=== PATIENT | female | born 1975 ===

== ENCOUNTER 2016-10-06 11:25 | Emergency (ER) | payer MEDICARE, MEDICAID ==
[2016-10-06 11:45] VITALS: PULSE 98; TEMP 98; O2SAT 100; BMI 22.8
--- NOTE | 2016-10-06 11:47 | C.PDOC ---
History Of Present Illness A 41 year old female, with a past medical history of herniated discs, presents to the emergency room with complaints of chronic lower back pain for 3 days. Patient reports that the pain is radiating to her right leg. Patient denies any fever, urinary symptoms, numbness, weakness, or any other complaints. Patient obtains prescribed controlled substances from PMD, who she had an appointment with yesterday. Patient notes that the PMD canceled the appointment due to an unknown conflict. Patient has another appointment scheduled in 1 week. Time Seen by Provider: 10/06/16 11:37 Chief Complaint (Nursing): Back Pain History Per: Patient History/Exam Limitations: no limitations Onset/Duration Of Symptoms: Days (3) Current Symptoms Are (Timing): Still Present Quality Of Discomfort: "Pain" Severity: Mild Previous Symptoms: Back Pain, Chronic Pain Associated Symptoms: None. denies: Incontinence, New Weakness, New Numbness Recent travel outside of the [place]: No Past Medical History Reviewed: Historical Data, Nursing Documentation, Vital Signs Vital Signs: Last Vital Signs Temp 98 F 10/06/16 11:43 Pulse 98 H 10/06/16 11:43 Resp 16 10/06/16 11:43 BP 133/81 10/06/16 12:10 Pulse Ox 100 10/06/16 12:00 - Medical History PMH: Back Problems, HTN, Hypothyroidism, Seizures Denies: Chronic Kidney Disease Family History: States: Unknown Family Hx - Social History Hx Tobacco Use: No Hx Alcohol Use: No Hx Substance Use: No - Immunization History Hx Tetanus Toxoid Vaccination: Yes Hx Influenza Vaccination: Yes (2015) Hx Pneumococcal Vaccination: Yes Review Of Systems Except As Marked, All Systems Reviewed And Found Negative. Constitutional: Negative for: Fever Genitourinary: Negative for: Dysuria, Incontinence, Hematuria Musculoskeletal: Positive for: Back Pain Neurological: Negative for: Weakness, Numbness Physical Exam - Physical Exam Additional Physical Exam Comments: Constitutional: No acute distress. Head: Normocephalic. Atraumatic. Eyes: PERRL. ENT: Moist mucous membranes. Neck: Supple. Back: No CVA tenderness. No midline tenderness. Musculoskeletal: No tenderness or swelling of extremities. Skin: No rash. Neurologic: Alert, no focal deficit. ED Course And Treatment O2 Sat by Pulse Oximetry: 100 Medical Decision Making Medical Decision Making: Impression: A 41 year old female with chronic lower back pain. No acute findings on exam. Plan: -- Tramadol Progress Notes: Will administer 1 dose of Tramadol in ER. Explained to patient that I am unable to provided any prescriptions for controlled substances, as Patient is currently in contract with another physician. Disposition - Disposition Disposition: HOME/ ROUTINE Disposition Time: 12:11 Condition: STABLE Instructions: Lumbar Disc Herniation (ED) - Clinical Impression Clinical Impression: Chronic back pain - Scribe Statement The provider has reviewed the documentation as recorded by the Alannah Connolly Provider Scribe Attestation: All medical record entries made by the Alannah were at my direction and personally dictated by me. I have reviewed the chart and agree that the record accurately reflects my personal performance of the history, physical exam, medical decision making, and the department course for this patient. I have also personally directed, reviewed, and agree with the discharge instructions and disposition.
[2016-10-06 11:51] VITALS: RESP 16
[2016-10-06 12:11] VITALS: BP 133/81
== END 2016-10-06 12:12 | disposition home or self-care (01) ==
LOC: C.ER 11:25
DX: M54.5 Low back pain (principal); G89.29 Other chronic pain

== ENCOUNTER 2016-11-29 10:44 | Emergency (ER) | payer MEDICARE, OTHER ==
[2016-11-29 10:44] VITALS: BMI 24.3
[2016-11-29 11:02] VITALS: RESP 18; TEMP 98.1; O2SAT 98
[2016-11-29] MEDS ORDERED: Tmp-Smz 800 mg-160 mg DS Tab PO STA (11:46)
[2016-11-29] MEDS ORDERED: Tmp-Smz 800 mg-160 mg DS Tab ONE (11:56)
--- NOTE | 2016-11-29 12:14 | C.PDOC ---
History Of Present Illness 41 yr old female presents to the ER with complaints of pain to the right great toe for the past 3 days. Patient states she had a pedicure which she did herself and days later noticed pus was coming out and last night the nail fell off. Patient denies direct trauma, fever, chills, leg pain, weakness or numbness. Time Seen by Provider: 11/29/16 11:18 Chief Complaint (Nursing): Lower Extremity Problem/Injury History Per: Patient History/Exam Limitations: no limitations Onset/Duration Of Symptoms: Days (3) Past Medical History Reviewed: Historical Data, Nursing Documentation, Vital Signs Vital Signs: Last Vital Signs Temp 98.1 F 11/29/16 10:56 Pulse 75 11/29/16 12:50 Resp 18 11/29/16 12:50 BP 124/72 11/29/16 12:50 Pulse Ox 98 11/29/16 13:38 - Medical History PMH: Back Problems, HTN, Hypothyroidism, Seizures Family History: States: No Known Family Hx - Social History Hx Tobacco Use: No Hx Alcohol Use: No Hx Substance Use: No - Immunization History Hx Tetanus Toxoid Vaccination: Yes Hx Influenza Vaccination: Yes (2016) Hx Pneumococcal Vaccination: Yes Review Of Systems Except As Marked, All Systems Reviewed And Found Negative. Constitutional: Negative for: Fever, Chills Musculoskeletal: Positive for: Other ((+) Right great toe pain with pus drainage ). Negative for: Leg Pain Neurological: Negative for: Weakness, Numbness Physical Exam - Physical Exam Appears: Well, Non-toxic, No Acute Distress Skin: Warm, Dry, No Rash Head: Atraumatic, Normacephalic Eye(s): bilateral: Normal Inspection Oral Mucosa: Moist Extremity: No Calf Tenderness, Capillary Refill (<2), Other ((+) Right Great Toe - Mild swelling, tenderness and erythema; No puss drainage noted at this time, Toe nail complete avulsion.) Pulses: Left Dorsalis Pedis: Normal, Right Dorsalis Pedis: Normal Neurological/Psych: Oriented x3, Normal Speech, Normal Motor, Normal Sensation Gait: Steady ED Course And Treatment O2 Sat by Pulse Oximetry: 98 Progress Note: Toe was cleaned with saline and bacitracin was applied. Sterlie dressing was also applied. Patient advised to follow up with Podiatry in 2-3 days for further evalaution. Medical Decision Making Medical Decision Making: PLAN: * Bactrim PO * Keflex PO * Motrin PO * Tramadol PO Wound was cleansed with sterile and betadine. Sterile dressing and bacitracin was applied. The patient was instructed that the nail may or may not grow back. There was no fluctuance or drainage, so no indication for I&D. Disposition - Disposition Referrals: Podiatry Clinic [Outside] Disposition: HOME/ ROUTINE Disposition Time: 12:32 Condition: GOOD Additional Instructions: Follow up with the medical doctor within 1-2 days without fail. Return if worsened. Prescriptions: Bacitracin Ointment [Bacitracin] 60 gm TOP BID #1 tube Cephalexin [cephalexin] 500 mg PO BID #14 cap Sulfamethoxazole/Trimethoprim [Bactrim DS 800 mg-160 mg] 1 tab PO BID #14 tab traMADol [Ultram] 50 mg PO Q6 PRN #20 tab PRN Reason: Pain Instructions: Cellulitis (ED) - Clinical Impression Clinical Impression: Cellulitis - PA / FUNDRAISING COORDINATOR / Resident Statement MD/DO has reviewed & agrees with the documentation as recorded. - Scribe Statement The provider has reviewed the documentation as recorded by the Scribe Jeannine Beltran All medical record entries made by the Ezequielibsally were at my direction and personally dictated by me. I have reviewed the chart and agree that the record accurately reflects my personal performance of the history, physical exam, medical decision making, and the department course for this patient. I have also personally directed, reviewed, and agree with the discharge instructions and disposition.
[2016-11-29] MEDS ORDERED: Bacitracin 500 Units/gm Oint Foilpak UD ONE (12:40)
[2016-11-29] MEDS ORDERED: Bacitracin 500 Units/gm Oint Foilpak UD TOP ONE (12:40)
[2016-11-29 12:51] VITALS: BP 124/72; PULSE 75
== END 2016-11-29 13:05 | disposition home or self-care (01) ==
LOC: C.ER 10:44
DX: L03.031 Cellulitis of right toe (principal)

== ENCOUNTER 2016-12-05 17:16 | Emergency (ER) | payer MEDICARE, OTHER ==
[2016-12-05 17:16] VITALS: BMI 24.3
[2016-12-05 17:50] VITALS: RESP 20
[2016-12-05 19:10] LABS: CHLORIDE 104 mmol/L (98-107)
[2016-12-05 19:11] LABS: POTASSIUM 4.2 mmol/L (3.6-5.2); SODIUM 141 mmol/L (132-148)
[2016-12-05 19:12] LABS: BASO % 0.6 % (0.0-2.0); EOS # 0.1 K/uL (0.0-0.7); EOS % 1.4 % (0.0-4.0); HEMATOCRIT 33.7 % (34.0-47.0); LYMPH # 0.8 K/uL (1.0-4.3); MEAN CELL VOLUME 75.1 fL (81.0-99.0); MEAN CORPUSCULAR HEMOGLOBIN 23.2 pg (27.0-31.0); MEAN CORPUSCULAR HGB CONC 30.9 g/dL (33.0-37.0); MEAN PLATELET VOLUME 8.4 fL (7.2-11.7); MONO # 0.2 K/uL (0.0-0.8); MONO % 4.1 % (0.0-10.0); NRBC % 0.2 % (0.0-2.0); RED CELL DISTRIBUTION WIDTH 17.5 % (11.5-14.5); WHITE BLOOD COUNT 5.5 K/uL (4.8-10.8)
[2016-12-05 19:13] LABS: ALB/GLOB RATIO 1.4 (1.0-2.1); ALKALINE PHOSPHATASE 80 U/L (38-126); ALT/SGPT 10 U/L (9-52); AST/SGOT 19 U/L (14-36); BILIRUBIN,TOTAL 0.5 mg/dL (0.2-1.3); BLOOD UREA NITROGEN 9 mg/dL (7-17); CARBON DIOXIDE 22 mmol/L (22-30); GFR AFRICAN-AMERICAN > 60; TOTAL PROTEIN 7.6 g/dL (6.3-8.3)
[2016-12-05 19:14] LABS: CALCIUM 8.3 mg/dl (8.6-10.4); GLUCOSE,RANDOM 84 mg/dL (65-105)
[2016-12-05 19:19] LABS: RBC URINE 365 /hpf (0-3); URINE BILIRUBIN NEGATIVE (NEGATIVE); URINE BLOOD 3+ (NEGATIVE); URINE COLOR Yellow (YELLOW); URINE GLUCOSE (UA) NORMAL (Normal); URINE KETONE NEGATIVE (NEGATIVE); URINE LEUKOCYTE ESTERASE 1+ Leu/uL (Negative); URINE PROTEIN NEGATIVE (NEGATIVE); URINE UROBILINOGEN NORMAL mg/dL (0.2-1.0); WBC URINE 24 /hpf (0-5)
[2016-12-05] MEDS ORDERED: Sodium Chloride 0.9% 1,000 ML IV ONE (19:20)
--- NOTE | 2016-12-05 20:04 | C.PDOC ---
Time Seen by Provider: 12/05/16 19:03 Chief Complaint (Nursing): Abdominal Pain History Per: Patient Onset/Duration Of Symptoms: Days Current Symptoms Are (Timing): Still Present Severity: Moderate Location Of Pain/Discomfort: Suprapubic Quality Of Discomfort: Cramping Exacerbating Factors: None Alleviating Factors: None Additional History Per: Prior Records Abnormal Vaginal Bleeding: Yes Past Medical History Reviewed: Historical Data, Nursing Documentation, Vital Signs Vital Signs: Last Vital Signs Temp 97.9 F 12/05/16 17:47 Pulse 93 H 12/05/16 17:47 Resp 20 12/05/16 17:47 BP 109/77 12/05/16 17:47 Pulse Ox 100 12/05/16 17:47 - Medical History PMH: Back Problems, HTN, Hypothyroidism, Seizures Other PMH: Uterine fibroids Other Surgeries: Gastric Bypass Family History: States: Unknown Family Hx - Social History Hx Tobacco Use: No Hx Alcohol Use: No Hx Substance Use: No - Immunization History Hx Tetanus Toxoid Vaccination: Yes Hx Influenza Vaccination: Yes (2015) Hx Pneumococcal Vaccination: Yes Review Of Systems Except As Marked, All Systems Reviewed And Found Negative. Constitutional: Negative for: Fever, Weakness Cardiovascular: Negative for: Chest Pain, Light Headedness Respiratory: Negative for: Shortness of Breath Gastrointestinal: Negative for: Vomiting, Diarrhea Genitourinary: Positive for: Vaginal Bleeding, Pelvic Pain. Negative for: Dysuria, Frequency, Incontinence Musculoskeletal: Negative for: Neck Pain, Back Pain Skin: Negative for: Rash Neurological: Negative for: Weakness, Numbness, Seizures, Altered Mental Status Physical Exam - Physical Exam Appears: Non-toxic, No Acute Distress Skin: Normal Color, Warm, Dry, No Rash Head: Atraumatic, Normacephalic Eye(s): bilateral: PERRL, EOMI Neck: Normal ROM, Supple Cardiovascular: Rhythm Regular Respiratory: Normal Breath Sounds, No Accessory Muscle Use Gastrointestinal/Abdominal: Soft, Tenderness (suprapubic), No Guarding, No Rebound Back: No CVA Tenderness Extremity: Normal ROM Neurological/Psych: Oriented x3, Normal Motor, Normal Sensation ED Course And Treatment - Laboratory Results Result Diagrams: 12/05/16 18:58 12/05/16 18:58 Lab Interpretation: No Changes Compared To Prior Results Urine POC: Negative O2 Sat by Pulse Oximetry: 100 Pulse Ox Interpretation: Normal Progress Note: Pt feels better and wants to go home. Reassessment Condition: Improved - Physician Consult Information Physician Contacted: Charles Harp ([employer]rial [employer]) Outcome Of Conversation: States pt can go home on pain meds and f/up with Construction Administrator. Progress - Interventions Interventions:: Observation, Intravenous fluid - Medications Administered Intravenous: NSAID - Data Reviewed Data Reviewed: Lab, Old records - Patient Status Patient status: Mostly improved - Continuity of Care Discussed patient case with:: Patient, ED Nurse Discussed pt. case with enterprise resource planning consultant/specialty: Obstetrics/Gynecology - Patient Plan Patient Plan: Discharge, F/U with PCP Disposition Counseled Patient/Family Regarding: Studies Performed, Diagnosis, Need For Followup, Rx Given - Disposition Referrals: Dejon Long [Staff Provider] - Disposition: HOME/ ROUTINE Disposition Time: 20:06 Condition: IMPROVED Additional Instructions: Follow up with a Construction Administrator this week for further evaluation and treatment. Return to the ER if you develop fever, vomiting, dizziness, worsening of symptoms or if you have any other concerns. Prescriptions: traMADol/Acetaminophen [Ultracet 325 MG-37.5 MG] 1 tab PO Q4 PRN #30 tab PRN Reason: Pain Instructions: Uterine Fibroids (ED) - Clinical Impression Clinical Impression: Pelvic pain, Abnormal vaginal bleeding
[2016-12-05 20:25] VITALS: BP 140/90; PULSE 88; TEMP 98.7; O2SAT 95
== END 2016-12-05 20:25 | disposition home or self-care (01) ==
LOC: C.ER 17:16
DX: R10.2 Pelvic and perineal pain (principal); N93.9 Abnormal uterine and vaginal bleeding, unspecified
CPT/HCPCS: 80053; 81001; 83690; 84703; 85025; 96361; 96374; 99284; J1885; J7040

== ENCOUNTER 2017-01-10 15:12 | Emergency (ER) | payer MEDICARE, OTHER ==
[2017-01-10 15:12] VITALS: BMI 24.3
[2017-01-10 15:29] VITALS: BP 119/80; PULSE 83; RESP 17; TEMP 99; O2SAT 99
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
== END 2017-01-10 16:09 | disposition home or self-care (01) ==
LOC: SUPCPDRO 15:12 → C.ER 15:12
DX: S39.012A Strain of muscle, fascia and tendon of lower back, initial encounter (principal); V49.59XA Passenger injured in collision with other motor vehicles in traffic accident, initial encounter; Y92.410 Unspecified street and highway as the place of occurrence of the external cause

== ENCOUNTER 2018-02-25 10:32 | Emergency (ER) | payer MEDICARE, OTHER ==
[2018-02-25 10:32] VITALS: BMI 24.3
[2018-02-25] MEDS ORDERED: Morphine 4 MG/ML VIAL ONE (11:07)
--- NOTE | 2018-02-25 11:09 | C.PDOC ---
History Of Present Illness 42 year old female, with PMHx of fibroids, and ovarian cyst, presents to ED for evaluation of pelvic pain associated with vaginal bleeding for the last 3 days. Notes vaginal bleeding is heavier with clots today. She reports her LMP was and has history of irregular menstrual periods since 04/2017. She states she had 3 blood transfusions since that time and was suggested to have hysterectomy. Also notes she feels lightheaded occasionally, but not at this time. She admits to not taking her blood pressure medication this morning. Notes she took Naprosyn 1 hour ago with no relief. Also reports taking iron. Otherwise, denies dizziness, chest pain, shortness of breath, n/v/d, vaginal discharge, or fever. Time Seen by Provider: 02/25/18 10:46 Chief Complaint (Nursing): Abdominal Pain History Per: Patient History/Exam Limitations: no limitations Onset/Duration Of Symptoms: Days Current Symptoms Are (Timing): Still Present Location Of Pain/Discomfort: Suprapubic Radiation Of Pain To:: None Quality Of Discomfort: "Pain" Associated Symptoms: denies: Fever, Chills, Loss Of Appetite, Back Pain, Urinary Symptoms Exacerbating Factors: None Alleviating Factors: None. denies: OTC Meds Recent travel outside of the [place]: No Additional History Per: Patient Last Menstral Period: 02/14/18 Past Medical History Reviewed: Historical Data, Nursing Documentation, Vital Signs Vital Signs: Last Vital Signs Temp 98.4 F 02/25/18 14:03 Pulse 85 02/25/18 14:03 Resp 16 02/25/18 14:03 BP 113/82 02/25/18 14:03 Pulse Ox 96 02/25/18 14:03 - Medical History PMH: Back Problems, HTN, Hypothyroidism, Seizures Denies: Chronic Kidney Disease Family History: States: Unknown Family Hx - Social History Hx Tobacco Use: No Hx Alcohol Use: No Hx Substance Use: No - Immunization History Hx Tetanus Toxoid Vaccination: Yes Hx Influenza Vaccination: Yes (2015) Hx Pneumococcal Vaccination: Yes Review Of Systems Except As Marked, All Systems Reviewed And Found Negative. Constitutional: Negative for: Fever, Chills Cardiovascular: Negative for: Chest Pain, Light Headedness Respiratory: Negative for: Shortness of Breath Gastrointestinal: Positive for: Abdominal Pain. Negative for: Nausea, Vomiting , Diarrhea, Constipation Genitourinary: Positive for: Vaginal Bleeding, Pelvic Pain. Negative for: Dysuria, Frequency, Hematuria Musculoskeletal: Negative for: Back Pain Neurological: Negative for: Headache, Dizziness Physical Exam - Physical Exam Appears: Non-toxic, No Acute Distress Skin: Normal Color, Warm, Dry Head: Atraumatic, Normacephalic Eye(s): bilateral: Normal Inspection, EOMI Nose: Normal Oral Mucosa: Moist Neck: Normal ROM, Supple Chest: Symmetrical Cardiovascular: Rhythm Regular Respiratory: Normal Breath Sounds, No Rales, No Rhonchi, No Wheezing Gastrointestinal/Abdominal: Soft, Tenderness (suprapubic tenderness), No Guarding, No Rebound Back: No CVA Tenderness Extremity: Normal ROM Neurological/Psych: Oriented x3, Normal Speech ED Course And Treatment - Laboratory Results Result Diagrams: 02/25/18 12:35 02/25/18 12:35 O2 Sat by Pulse Oximetry: 99 (RA) Pulse Ox Interpretation: Normal Progress Note: Blood work, Type and screen, UA ordered and reviewed. Pt was given Morphine, Lisinopril, and Zofran. On re-evaluation, patient is resting comrfortably, denies any chest pain, shortness of breath, lightheadedness, or dizziness. She reports improvement of pain. Case discussed with Dr Gray who evaluated pt at bedside and agreed upon plan and treatment. Case discussed with Chandrika Telles , RESEARCH INTERN supervisor of operations, who instruts RX as prescribed and out pt follow up . Pt verbalized understanding and will follow up with her FORM SETTER this week. Disposition - Disposition Referrals: Nika Andrews MD [Staff Provider] - Disposition: HOME/ ROUTINE Disposition Time: 13:38 Condition: STABLE Additional Instructions: FOllow up with your FORM SETTER in 1-2 days. Continue taking your iron. Return to ER if symptoms persist or worsen. Prescriptions: Tranexamic Acid [Lysteda] 1,300 mg PO TID 5 Days tablet Instructions: Heavy Periods (DC) Forms: [place] (Maori) - Clinical Impression Clinical Impression: DUB (dysfunctional uterine bleeding) - PA / INFECTION CONTROL PREVENTIONIST / Resident Statement MD/DO has reviewed & agrees with the documentation as recorded. - Scribe Statement The provider has reviewed the documentation as recorded by the Scribe KP All medical record entries made by the Scribe were at my direction and personally dictated by me. I have reviewed the chart and agree that the record accurately reflects my personal performance of the history, physical exam, medical decision making, and the department course for this patient. I have also personally directed, reviewed, and agree with the discharge instructions and disposition.
[2018-02-25 12:40] LABS: BASO % 0.9 % (0.0-2.0); EOS % 0.6 % (0.0-4.0); HEMOGLOBIN 10.5 g/dL (11.0-16.0); LYMPH # 0.9 K/uL (1.0-4.3); LYMPH % 22.4 % (20.0-40.0); MEAN CELL VOLUME 75.3 fL (81.0-99.0); MEAN CORPUSCULAR HEMOGLOBIN 24.1 pg (27.0-31.0); MEAN CORPUSCULAR HGB CONC 31.9 g/dL (33.0-37.0); MONO # 0.2 K/uL (0.0-0.8); MONO % 5.4 % (0.0-10.0); NEUT # 2.7 K/uL (1.8-7.0); NEUT % 70.7 % (50.0-75.0); RBC 4.38 Mil/uL (3.80-5.20); RED CELL DISTRIBUTION WIDTH 26.9 % (11.5-14.5); WHITE BLOOD COUNT 3.8 K/uL (4.8-10.8)
[2018-02-25 12:48] LABS: INR 1.2; PROTHROMBIN TIME 12.6 SECONDS (9.7-12.2)
[2018-02-25 12:59] LABS: ALB/GLOB RATIO 1.6 (1.0-2.1); ALBUMIN 4.5 g/dL (3.5-5.0); ALT/SGPT 43 U/L (9-52); AST/SGOT 54 U/L (14-36); BLOOD UREA NITROGEN 9 mg/dL (7-17); GFR AFRICAN-AMERICAN > 60; GFR NON-AFRICAN AMERICAN > 60; LIPASE 125 U/L (23-300)
[2018-02-25 14:04] VITALS: BP 113/82; PULSE 85; RESP 16; TEMP 98.4
[2018-02-25 14:12] LABS: SQUAMOUS EPITHIAL 99 /hpf (0-5); URINE BILIRUBIN NEGATIVE (NEGATIVE); URINE BLOOD 2+ (NEGATIVE); URINE CLARITY Hazy (Clear); URINE COLOR Yellow (YELLOW); URINE GLUCOSE (UA) NORMAL (Normal); URINE LEUKOCYTE ESTERASE TRACE Leu/uL (Negative); URINE PROTEIN 1+ mg/dL (NEGATIVE); URINE UROBILINOGEN NORMAL mg/dL (0.2-1.0)
[2018-02-25 15:38] LABS: HCG,QUALITATIVE URINE NEGATIVE (NEGATIVE)
[2018-02-26 08:21] VITALS: O2SAT 99
== END 2018-02-25 14:54 | disposition home or self-care (01) ==
LOC: C.ER 10:32
DX: N93.8 Other specified abnormal uterine and vaginal bleeding (principal); I10 Essential (primary) hypertension; E03.9 Hypothyroidism, unspecified
CPT/HCPCS: 80053; 81001; 83690; 84703; 85025; 85610; 85730; 86850; 86870; 86900; 96374; 96375; 99284; J2270; J2405

== ENCOUNTER 2018-02-26 11:17 | Emergency (ER) | payer OTHER ==
[2018-02-26 11:18] VITALS: BMI 24.3
--- NOTE | 2018-02-26 12:40 | RAD ---
Date of service: 02/26/2018 PROCEDURE: Right Knee Radiographs. HISTORY: fall COMPARISON: None. FINDINGS: BONES: Normal. No fracture. JOINTS: Normal. No osteoarthritis. JOINT EFFUSION: None. OTHER FINDINGS: None. IMPRESSION: Normal radiographs of the right knee.
[2018-02-26 14:03] LABS: SQUAMOUS EPITHIAL 17 /hpf (0-5); URINE BILIRUBIN NEGATIVE (NEGATIVE); URINE BLOOD NEGATIVE (NEGATIVE); URINE CLARITY Hazy (Clear); URINE COLOR Yellow (YELLOW); URINE GLUCOSE (UA) NORMAL (Normal); URINE LEUKOCYTE ESTERASE NEG Leu/uL (Negative); URINE PROTEIN 1+ mg/dL (NEGATIVE)
--- NOTE | 2018-02-26 14:19 | US ---
Date of service: 02/26/2018 HISTORY: abd pain COMPARISON: None available. TECHNIQUE: Transvaginal FINDINGS: UTERUS: Measures 8.8 x 4.6 x 6.0 cm. Fundal posterior subserosal uterine fibroid, 1.9 x 3.0 x 3.1 cm. No other discrete mass identified. Generally heterogeneous echotexture. ENDOMETRIUM: Measures 8 mm in diameter. Unremarkable. CERVIX: No cervical abnormality identified. RIGHT OVARY: Measures 3.0 x 2.0 x 2.6 cm. No solid mass. Normal flow. LEFT OVARY: Measures 2.8 x 1.8 x 3.0 cm. No solid mass. Normal flow. 1.8 cm simple cyst, presumed physiologic. FREE FLUID: No significant free fluid noted. OTHER FINDINGS: None. IMPRESSION: 3.1 cm posterior subserosal fibroid. Otherwise unremarkable.
[2018-02-26 14:27] LABS: BASO % 0.7 % (0.0-2.0); EOS % 0.3 % (0.0-4.0); HEMOGLOBIN 10.8 g/dL (11.0-16.0); LYMPH # 1.8 K/uL (1.0-4.3); LYMPH % 29.8 % (20.0-40.0); MEAN CELL VOLUME 75.8 fL (81.0-99.0); MEAN CORPUSCULAR HEMOGLOBIN 24.2 pg (27.0-31.0); MEAN CORPUSCULAR HGB CONC 31.9 g/dL (33.0-37.0); MONO # 0.3 K/uL (0.0-0.8); MONO % 5.5 % (0.0-10.0); NEUT # 3.9 K/uL (1.8-7.0); NEUT % 63.7 % (50.0-75.0); NRBC % 0.1 % (0.0-2.0); RBC 4.47 Mil/uL (3.80-5.20); RED CELL DISTRIBUTION WIDTH 27.8 % (11.5-14.5)
[2018-02-26 14:28] LABS: WHITE BLOOD COUNT 6.2 K/uL (4.8-10.8)
[2018-02-26 14:35] LABS: INR 1.1; PROTHROMBIN TIME 12.5 SECONDS (9.7-12.2)
[2018-02-26 14:49] LABS: ALB/GLOB RATIO 1.6 (1.0-2.1); ALBUMIN 4.7 g/dL (3.5-5.0); ALT/SGPT 39 U/L (9-52); AST/SGOT 53 U/L (14-36); BLOOD UREA NITROGEN 13 mg/dL (7-17); CALCIUM 9.1 mg/dl (8.6-10.4); GFR AFRICAN-AMERICAN > 60; GFR NON-AFRICAN AMERICAN > 60; LIPASE 224 U/L (23-300)
--- NOTE | 2018-02-26 14:55 | C.PDOC ---
History Of Present Illness 42 y/o female presents to the ER complaining of lower abdominal pain and pelvic cramping with intermittent vaginal spotting. Patient states that the pain became intense last night. 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 She also notes that she tripped and fell yesterday injuring her right knee. Denies having LOC. Time Seen by Provider: 02/26/18 11:59 Chief Complaint (Nursing): Abdominal Pain History Per: Patient History/Exam Limitations: no limitations Onset/Duration Of Symptoms: Days Current Symptoms Are (Timing): Still Present Severity: Moderate Past Medical History Reviewed: Historical Data, Nursing Documentation, Vital Signs Vital Signs: Last Vital Signs Temp 99.5 F 02/26/18 11:27 Pulse 84 02/26/18 11:27 Resp 19 02/26/18 11:27 BP 125/92 H 02/26/18 11:27 Pulse Ox 97 02/26/18 11:27 - Medical History PMH: Back Problems, HTN, Hypothyroidism, Seizures Denies: Chronic Kidney Disease Other Surgeries: Hx of surgeries Family History: States: No Known Family Hx - Social History Hx Tobacco Use: No Hx Alcohol Use: No Hx Substance Use: No - Immunization History Hx Tetanus Toxoid Vaccination: No Hx Influenza Vaccination: No Hx Pneumococcal Vaccination: No Review Of Systems Except As Marked, All Systems Reviewed And Found Negative. Constitutional: Negative for: Fever, Chills Gastrointestinal: Positive for: Other (pelvic pain). Negative for: Nausea, Vomiting, Diarrhea Genitourinary: Positive for: Other (vaginal spotting). Negative for: Dysuria, Hematuria Physical Exam - Physical Exam Appears: Non-toxic, No Acute Distress Skin: Normal Color, Warm, Dry Head: Atraumatic, Normacephalic Eye(s): bilateral: Normal Inspection Nose: Normal Oral Mucosa: Moist Neck: Supple Chest: Symmetrical Cardiovascular: Rhythm Regular Respiratory: Normal Breath Sounds, No Rales, No Rhonchi, No Wheezing Gastrointestinal/Abdominal: Soft, Tenderness (tenderness to lower abdomen), No Guarding, No Rebound Pelvic: No Vaginal Discharge, No Cervical Motion Tenderness, Adnexal Tenderness (mild adnexal tenderness), No Mass Neurological/Psych: Oriented x3, Normal Speech ED Course And Treatment - Laboratory Results Result Diagrams: 02/26/18 14:22 O2 Sat by Pulse Oximetry: 97 (RA) Pulse Ox Interpretation: Normal Disposition - Disposition Forms: [facility] (Moroccan) - Scribe Statement The provider has reviewed the documentation as recorded by the Scribe Pedrito Leonard Provider Attestation: All medical record entries made by the Scribe were at my direction and personally dictated by me. I have reviewed the chart and agree that the record accurately reflects my personal performance of the history, physical exam, medical decision making, and the department course for this patient. I have also personally directed, reviewed, and agree with the discharge instructions and disposition.
--- NOTE | 2018-02-26 14:55 | C.PDOC ---
History Of Present Illness 42 y/o female presents to the ER complaining of lower abdominal pain and pelvic cramping with intermittent vaginal spotting. Patient states that the pain became intense last night. 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 She also notes that she tripped and fell yesterday injuring her right knee. Denies having LOC. Time Seen by Provider: 02/26/18 11:59 Chief Complaint (Nursing): Abdominal Pain History Per: Patient History/Exam Limitations: no limitations Onset/Duration Of Symptoms: Days Current Symptoms Are (Timing): Still Present Severity: Moderate Past Medical History Reviewed: Historical Data, Nursing Documentation, Vital Signs Vital Signs: Last Vital Signs Temp 99.5 F 02/26/18 11:27 Pulse 84 02/26/18 11:27 Resp 19 02/26/18 11:27 BP 125/92 H 02/26/18 11:27 Pulse Ox 97 02/26/18 15:16 - Medical History PMH: Back Problems, HTN, Hypothyroidism, Seizures Denies: Chronic Kidney Disease Other Surgeries: Hx of surgeries Family History: States: No Known Family Hx - Social History Hx Tobacco Use: No Hx Alcohol Use: No Hx Substance Use: No - Immunization History Hx Tetanus Toxoid Vaccination: No Hx Influenza Vaccination: No Hx Pneumococcal Vaccination: No Review Of Systems Except As Marked, All Systems Reviewed And Found Negative. Constitutional: Negative for: Fever, Chills Gastrointestinal: Positive for: Other (pelvic pain). Negative for: Nausea, Vomiting, Diarrhea Genitourinary: Positive for: Other (vaginal spotting) Physical Exam - Physical Exam Appears: Non-toxic, No Acute Distress Skin: Normal Color, Warm, Dry Head: Atraumatic, Normacephalic Eye(s): bilateral: Normal Inspection Nose: Normal Oral Mucosa: Moist Neck: Supple Chest: Symmetrical Cardiovascular: Rhythm Regular Respiratory: Normal Breath Sounds, No Rales, No Rhonchi, No Wheezing Gastrointestinal/Abdominal: Soft, Tenderness (tenderness to lower abdomen), No Guarding, No Rebound Pelvic: No Vaginal Discharge, No Cervical Motion Tenderness, Adnexal Tenderness (mild adnexal tenderness), No Mass, Other (normal vaginal tissue) Neurological/Psych: Oriented x3, Normal Speech ED Course And Treatment - Laboratory Results Result Diagrams: 02/26/18 14:22 02/26/18 14:22 O2 Sat by Pulse Oximetry: 97 (RA) Pulse Ox Interpretation: Normal - Other Rad X-Ray- Right Knee X-Ray: Viewed By Me, Read By Radiologist Interpretation: Date of service: 02/26/2018. PROCEDURE: Right Knee Radiographs. HISTORY: fall. COMPARISON: None. FINDINGS: BONES: Normal. No fracture. JOINTS: Normal. No osteoarthritis. JOINT EFFUSION: None. OTHER FINDINGS: None. IMPRESSION: Normal radiographs of the right knee. - CT Scan/US US- Transvaginal Other Rad Studies (CT/US): Read By Radiologist, Radiology Report Reviewed CT/US Interpretation: Date of service: 02/26/2018. HISTORY: abd pain. COMPARISON: None available. TECHNIQUE: Transvaginal. FINDINGS: UTERUS: Measures 8.8 x 4.6 x 6.0 cm. Fundal posterior subserosal uterine fibroid, 1.9 x 3.0 x 3.1 cm. No other discrete mass identified. Generally heterogeneous echotexture. ENDOMETRIUM: Measures 8 mm in diameter. Unremarkable. CERVIX: No cervical abnormality identified. RIGHT OVARY: Measures 3.0 x 2.0 x 2.6 cm. No solid mass. Normal flow. LEFT OVARY: Measures 2.8 x 1.8 x 3.0 cm. No solid mass. Normal flow. 1.8 cm simple cyst, presumed physiologic. FREE FLUID: No significant free fluid noted. OTHER FINDINGS: None. IMPRESSION: 3.1 cm posterior subserosal fibroid. Otherwise unremarkable. Medical Decision Making Medical Decision Making: Assessment: Fibroids, Contusion Plan: --Pepcid IV --Toradol IV --Labs --UA --US- Transvag --X-Ray- Right Knee Disposition Counseled Patient/Family Regarding: Studies Performed, Diagnosis, Need For Followup, Rx Given - Disposition Referrals: Ning Conley MD [Staff Provider] - [facility] [Outside] Disposition: HOME/ ROUTINE Disposition Time: 14:53 Condition: STABLE Additional Instructions: follow up with gynecology within 2 days call to make an appointment take medications as prescribed return to ER if symptoms worsens or progress Prescriptions: traMADol [Ultram] 50 mg PO TID PRN #12 tab PRN Reason: Pain, Moderate (4-7) Instructions: Uterine Fibroids, Contusion (DC) Forms: General Discharge Instructions, [facility] (Bengali) - Clinical Impression Clinical Impression: Fibroid, Contusion - Scribe Statement The provider has reviewed the documentation as recorded by the Ezequielibsally Leonard Provider Attestation: All medical record entries made by the Ezequielibe were at my direction and personally dictated by me. I have reviewed the chart and agree that the record accurately reflects my personal performance of the history, physical exam, medical decision making, and the department course for this patient. I have also personally directed, reviewed, and agree with the discharge instructions and disposition.
[2018-02-26 15:23] VITALS: BP 123/76; PULSE 69; RESP 18; TEMP 8; O2SAT 98
== END 2018-02-26 15:22 | disposition home or self-care (01) ==
LOC: C.ER 11:17
DX: D25.2 Subserosal leiomyoma of uterus (principal); S80.01XA Contusion of right knee, initial encounter; W01.0XXA Fall on same level from slipping, tripping and stumbling without subsequent striking against object, initial encounter; I10 Essential (primary) hypertension; E03.9 Hypothyroidism, unspecified
CPT/HCPCS: 73562; 76830; 80053; 81001; 83690; 85025; 85610; 85730; 87086; 87491; 87591; 96374; 96375; 99285; J1885

== ENCOUNTER 2018-03-06 11:57 | Emergency (ER) | payer OTHER ==
[2018-03-06 11:57] VITALS: BMI 24.3
[2018-03-06 12:06] VITALS: RESP 18
[2018-03-06 12:56] LABS: PH,URINE 7.5 (5.0-8.0); URINE BILIRUBIN NEGATIVE (NEGATIVE); URINE BLOOD NEGATIVE (NEGATIVE); URINE CLARITY Clear (Clear); URINE COLOR YELLOW (YELLOW); URINE GLUCOSE (UA) NEGATIVE (Normal); URINE LEUKOCYTE ESTERASE NEGATIVE Leu/uL (Negative); URINE PROTEIN NEGATIVE (NEGATIVE)
--- NOTE | 2018-03-06 13:49 | C.PDOC ---
History Of Present Illness 42 y/o female patient with PMHx of uterine fibroids and endometriosis presents to the ED with pelvic pain for the past week. Patient states that her DISPATCHER AUTOMOBILE RENTAL cancelled her appointment yesterday. She notes that pain has worsened this morning, prompting ED visit. 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 She denies fever,chills, vaginal bleeding or any other associated symptoms. Time Seen by Provider: 03/06/18 13:15 Chief Complaint (Nursing): Female Genitourinary History Per: Patient History/Exam Limitations: no limitations Onset/Duration Of Symptoms: Days Current Symptoms Are (Timing): Still Present Severity: Mild Quality Of Discomfort: "Pain" Associated Symptoms: Other (pelvic pain). denies: Fever, Chills Alleviating Factors: None Past Medical History Reviewed: Historical Data, Nursing Documentation, Vital Signs Vital Signs: Last Vital Signs Temp 97.9 F 03/06/18 14:11 Pulse 65 03/06/18 14:11 Resp 18 03/06/18 14:11 BP 139/89 03/06/18 14:11 Pulse Ox 100 03/06/18 14:11 - Medical History PMH: Anemia, Back Problems, Cardia Arrhythmia (palpitations), HTN, Hypothyroidism Denies: Seizures (denies 03/06/18) Surgical History: No Surg Hx Family History: States: Unknown Family Hx - Social History Hx Tobacco Use: No Hx Alcohol Use: No Hx Substance Use: No - Immunization History Hx Tetanus Toxoid Vaccination: Yes Hx Influenza Vaccination: No Hx Pneumococcal Vaccination: Yes Review Of Systems Constitutional: Negative for: Fever, Chills Gastrointestinal: Negative for: Nausea, Vomiting, Abdominal Pain, Diarrhea Genitourinary: Positive for: Pelvic Pain. Negative for: Dysuria, Vaginal Discharge, Vaginal Bleeding Physical Exam - Physical Exam Additional Physical Exam Comments: Constitutional: No acute distress. Head: Normocephalic. Atraumatic. Eyes: PERRL. ENT: Moist mucous membranes. Neck: Supple. Cardiovascular: Regular rate. Radial pulse 2+ bilaterally. Chest: No tenderness. Respiratory: Clear to auscultation bilaterally. GI: Soft. Nontender. Nondistended. Back: No CVA tenderness. Musculoskeletal: No tenderness or swelling of extremities. Skin: No rash. Neurologic: Alert, no focal deficit. ED Course And Treatment O2 Sat by Pulse Oximetry: 97 Medical Decision Making Medical Decision Making: Impression: 42 year old female patient with pelvic pain Plan: Tylenol, Morphine IV for pain control. RADIAGRAPH OPERATOR shows multiple tramadol prescriptions , informed patient can not prescribe further from ED. Already worked up for cause of pelvic pain. Disposition - Disposition Disposition: HOME/ ROUTINE Disposition Time: 14:24 Condition: STABLE Instructions: Acute Pelvic Pain Forms: [facility] (Syriac) - Clinical Impression Clinical Impression: Pelvic pain - Scribe Statement The provider has reviewed the documentation as recorded by the Alannah Reed Provider Attestation: All medical record entries made by the Alannah were at my direction and personally dictated by me. I have reviewed the chart and agree that the record accurately reflects my personal performance of the history, physical exam, medical decision making, and the department course for this patient. I have also personally directed, reviewed, and agree with the discharge instructions and disposition.
[2018-03-06] MEDS ORDERED: Morphine 4 MG/ML VIAL ONE (14:00)
[2018-03-06 14:11] VITALS: BP 139/89; PULSE 65; TEMP 97.9
[2018-03-06 14:25] VITALS: O2SAT 97
== END 2018-03-06 14:38 | disposition home or self-care (01) ==
LOC: C.ER 11:57
DX: R10.2 Pelvic and perineal pain (principal)
CPT/HCPCS: 81001; 96372; 99285; J2270

== ENCOUNTER 2018-03-29 12:43 | Emergency (ER) | payer OTHER ==
[2018-03-29 12:43] VITALS: BMI 24.3
[2018-03-29 14:07] VITALS: O2SAT 97
[2018-03-29] MEDS ORDERED: Sodium Chloride 0.9% 1,000 ML IV ONE (14:16)
[2018-03-29 15:10] LABS: HCG,QUALITATIVE URINE NEGATIVE (NEGATIVE)
[2018-03-29 15:14] LABS: SQUAMOUS EPITHIAL 4 /hpf (0-5); URINE BACTERIA MOD (<OCC); URINE BILIRUBIN NEGATIVE (NEGATIVE); URINE BLOOD 2+ (NEGATIVE); URINE CLARITY Hazy (Clear); URINE COLOR Yellow (YELLOW); URINE GLUCOSE (UA) NORMAL (Normal); URINE LEUKOCYTE ESTERASE TRACE Leu/uL (Negative); URINE PROTEIN 1+ mg/dL (NEGATIVE)
[2018-03-29] MEDS ORDERED: Sodium Chloride 0.9% 1,000 ML ONE (15:29)
--- NOTE | 2018-03-29 16:09 | C.PDOC ---
History Of Present Illness 42 y/o female with history of Ovarian cyst and Gastric bypass presents to ED with c/o pelvic pain associated with irregular vaginal bleeding for 1 month. Patient reports she has vaginal bleeding for 5 days and pelvic pain worsen prompting visit to ED. Patient states she was seen by OBGYN 1 week ago and had pelvic exam, discharged on Naprosen. Patient denies fever, chills, dysuria, vomiting or any other complaints at this time. Time Seen by Provider: 03/29/18 13:42 Chief Complaint (Nursing): Female Genitourinary History Per: Patient History/Exam Limitations: no limitations Onset/Duration Of Symptoms: Days Current Symptoms Are (Timing): Still Present Past Medical History Reviewed: Historical Data, Nursing Documentation, Vital Signs Vital Signs: Last Vital Signs Temp 97.9 F 03/29/18 18:39 Pulse 80 03/29/18 18:39 Resp 16 03/29/18 18:39 BP 134/90 03/29/18 18:39 Pulse Ox 97 03/29/18 18:39 - Medical History PMH: Anemia, Back Problems, Cardia Arrhythmia (palpitations), HTN, Hypothyroidism Surgical History: No Surg Hx Family History: States: No Known Family Hx - Social History Hx Tobacco Use: No Hx Alcohol Use: No Hx Substance Use: No - Immunization History Hx Tetanus Toxoid Vaccination: Yes Hx Influenza Vaccination: No Hx Pneumococcal Vaccination: Yes Review Of Systems Constitutional: Negative for: Fever, Chills Respiratory: Negative for: Cough Genitourinary: Positive for: Vaginal Bleeding, Pelvic Pain. Negative for: Dysuria Musculoskeletal: Negative for: Back Pain Skin: Negative for: Rash Neurological: Negative for: Weakness, Numbness Physical Exam - Physical Exam Appears: Non-toxic, No Acute Distress Skin: Warm, Dry, Pale, No Rash Head: Atraumatic, Normacephalic Eye(s): bilateral: Normal Inspection Oral Mucosa: Moist Neck: Normal ROM, Supple Chest: Symmetrical, No Tenderness Cardiovascular: Rhythm Regular, No Friction Rub, No Murmur Respiratory: Normal Breath Sounds, No Rales, No Rhonchi, No Wheezing Gastrointestinal/Abdominal: Soft, No Tenderness, No Guarding, No Rebound, Other (healed surgical scar to mid abdomen) Back: Normal Inspection, No CVA Tenderness Extremity: Normal ROM, No Swelling Neurological/Psych: Oriented x3, Normal Speech, Normal Cognition Gait: Steady ED Course And Treatment - Laboratory Results Result Diagrams: 03/29/18 17:19 03/29/18 17:19 O2 Sat by Pulse Oximetry: 97 (RA) Pulse Ox Interpretation: Normal Medical Decision Making Medical Decision Making: On re-exam, the patient is resting comfortably. Lungs are CTA, heart is RRR, abdomen is soft, non-tender and the patient is tolerating PO well. Patient is ambulatory with steady gait. Follow up with the medical doctor within 1-2 days without fail. Return if worsened. Disposition - Disposition Referrals: Lizzy Eubanks MD [Staff Provider] - Charles Harp MD [Staff Provider] - Disposition: HOME/ ROUTINE Disposition Time: 18:22 Condition: STABLE Additional Instructions: Follow up with the medical doctor within 1-2 days without fail. Return if worsened. Prescriptions: traMADol [Ultram] 50 mg PO Q6 PRN #20 tab PRN Reason: Pain Instructions: Uterine Fibroids Forms: [employer] [facility] (Albanian) - Clinical Impression Clinical Impression: Uterine fibroid - PA / MONTESSORI LEAD TEACHER / Resident Statement MD/DO has reviewed & agrees with the documentation as recorded. - Scribe Statement The provider has reviewed the documentation as recorded by the Ezequielibsally Knowles All medical record entries made by the Ezequielibsally were at my direction and personally dictated by me. I have reviewed the chart and agree that the record accurately reflects my personal performance of the history, physical exam, medical decision making, and the department course for this patient. I have also personally directed, reviewed, and agree with the discharge instructions and disposition.
--- NOTE | 2018-03-29 16:33 | US ---
Date of service: 03/29/2018 HISTORY: pelvic pain, r/o ovarian cyst vs torsion COMPARISON: Pelvic ultrasound performed 08/14/16 TECHNIQUE: Real-time transabdominal pelvic ultrasound was performed. In addition a transvaginal pelvic ultrasound was necessary to better depict pelvic anatomy. FINDINGS: UTERUS: Measures 7.6 x 4.6 x 5.1 cm. Anteverted. 2.7 x 6.0 x 2.9 cm posterior heterogeneous hypodense mass consistent with uterine fibroid. ENDOMETRIUM: Measures 7 mm in diameter. CERVIX: No cervical abnormality identified. RIGHT OVARY: Measures 2.8 x 1.9 x 2.7 cm. Blood flow is demonstrated. Complex cyst measures approximately 9 x 8 x 8 mm. LEFT OVARY: Measures 3.2 x 1.8 x 2.2 cm. Blood flow is demonstrated. 9 x 6 x 9 mm dominant follicle/ cyst. FREE FLUID: No significant free fluid noted. OTHER FINDINGS: None. IMPRESSION: Uterine fibroid. Small right complex ovarian cyst.
[2018-03-29 17:25] LABS: BASO % 0.8 % (0.0-2.0); EOS % 0.8 % (0.0-4.0); LYMPH # 1.3 K/uL (1.0-4.3); LYMPH % 29.9 % (20.0-40.0); MEAN CELL VOLUME 83.6 fL (81.0-99.0); MEAN CORPUSCULAR HGB CONC 32.3 g/dL (33.0-37.0); MONO # 0.2 K/uL (0.0-0.8); MONO % 5.7 % (0.0-10.0); NEUT # 2.6 K/uL (1.8-7.0); NEUT % 62.8 % (50.0-75.0); NRBC % 0.1 % (0.0-2.0); RBC 4.43 Mil/uL (3.80-5.20); RED CELL DISTRIBUTION WIDTH 28.2 % (11.5-14.5); WHITE BLOOD COUNT 4.2 K/uL (4.8-10.8)
[2018-03-29 17:37] LABS: ALB/GLOB RATIO 1.2 (1.0-2.1); ALBUMIN 4.5 g/dL (3.5-5.0); ALT/SGPT 34 U/L (9-52); AST/SGOT 46 U/L (14-36); BLOOD UREA NITROGEN 12 mg/dL (7-17); GFR NON-AFRICAN AMERICAN > 60
[2018-03-29 18:40] VITALS: BP 134/90; PULSE 80; RESP 16; TEMP 97.9
== END 2018-03-29 18:49 | disposition home or self-care (01) ==
LOC: C.ER 12:43
DX: D25.9 Leiomyoma of uterus, unspecified (principal); I10 Essential (primary) hypertension; E03.9 Hypothyroidism, unspecified
CPT/HCPCS: 76830; 76856; 80053; 81001; 84703; 85025; 96361; 96374; 96375; 99285; J1885; J2270; J7030

== ENCOUNTER 2018-05-12 12:17 | Emergency (ER) | payer OTHER ==
[2018-05-12 12:17] VITALS: BMI 24.3
--- NOTE | 2018-05-12 12:57 | C.PDOC ---
History Of Present Illness 42 year old female presents to ED complaining of pain to lower back/buttocks s/p falling twice yesterday. Patient reports pain to right buttocks is worse than pain to left buttocks. Patient states she took naproxen prior to arrival. Denies loss of consciousness, hitting her head on fall, dizziness, weakness, numbness. Time Seen by Provider: 05/12/18 12:44 Chief Complaint (Nursing): Back Pain History Per: Patient History/Exam Limitations: no limitations Onset/Duration Of Symptoms: Days Past Medical History Reviewed: Historical Data, Nursing Documentation, Vital Signs Vital Signs: Last Vital Signs Temp 97.8 F 05/12/18 12:35 Pulse 117 H 05/12/18 12:35 Resp 18 05/12/18 12:35 BP 133/86 05/12/18 12:35 Pulse Ox 99 05/12/18 12:35 - Medical History PMH: Anemia, Back Problems, Cardia Arrhythmia (palpitations), HTN, Hypothyroidism Denies: Chronic Kidney Disease, Seizures (denies 03/06/18) Surgical History: No Surg Hx Family History: States: No Known Family Hx - Social History Hx Tobacco Use: No Hx Alcohol Use: No Hx Substance Use: No - Immunization History Hx Tetanus Toxoid Vaccination: No Hx Influenza Vaccination: Yes Hx Pneumococcal Vaccination: No Review Of Systems Except As Marked, All Systems Reviewed And Found Negative. Constitutional: Negative for: Fever, Chills Cardiovascular: Negative for: Chest Pain Musculoskeletal: Positive for: Back Pain (Lower back pain), Other (Pain to buttocks bilaterally. Pain to right buttocks is worse than ppain to left buttocks.) Neurological: Positive for: Other (Did not hit head on fall, did not lose consciousness.). Negative for: Weakness, Numbness, Dizziness Physical Exam - Physical Exam Appears: Non-toxic, No Acute Distress Skin: Warm, Dry Head: Atraumatic, Normacephalic Eye(s): bilateral: PERRL, EOMI Oral Mucosa: Moist Neck: Supple Chest: Symmetrical, No Deformity Cardiovascular: Rhythm Regular, Other (Tachycardic) Respiratory: Normal Breath Sounds, No Rales, No Rhonchi, No Wheezing Back: Other (Minimal coccyx tenderness. Pain to palpation to buttocks bilaterally. Pain to right buttocks is worse than pain to left buttocks.) Neurological/Psych: Oriented x3 ED Course And Treatment ECG: Interpreted By Me, Viewed By Me ECG Rhythm: Sinus Tachycardia ECG Interpretation: No Acute Changes Interpretation Of ECG: Sinus rhythm 105 bpm, no acute changes. Pt states she is aware of her chronic tachycardia O2 Sat by Pulse Oximetry: 99 (RA) Pulse Ox Interpretation: Normal - Other Rad Sacrum &/or coccyx X-Ray: Interpreted by Me, Viewed By Me Interpretation: no acute fx or dislocation Reassessment Condition: Improved (pt reports improvement of pain, ambulates with steady gait and speaks in full sentences.) Medical Decision Making Medical Decision Making: Plan: * Tylenol * X-ray Sacrum &/or coccyx Disposition Counseled Patient/Family Regarding: Studies Performed, Diagnosis, Need For Followup, Rx Given - Disposition Referrals: Stephanie York MD [Medical Doctor] - Disposition: HOME/ ROUTINE Disposition Time: 13:40 Condition: STABLE Additional Instructions: FOLLOW UP WITH YOUR DOCTOR ON MONDAY FOR RE-EVALUATION AND OFFICIAL XRAY REPORT. TAKE TYLENOL 500 MG EVERY 4-6 HRS IN ADDITION TO NAPROXEN NEEDED FOR PAIN. TACHYCARDIA WAS NOTED ON TODAY'S VISIT. IF SYMPTOMS GET WORSE OR ANY NEW CONCERNING SYMPTOMS DEVELOP RETURN TO ED. Instructions: Tachycardia, Low Back Pain (DC) Forms: [facility] (Bahraini), General Discharge Instructions - Clinical Impression Clinical Impression: Low back pain, Tachycardia - PA / EXCHANGE SPECIALIST / Resident Statement MD/DO has reviewed & agrees with the documentation as recorded. - Scribe Statement The provider has reviewed the documentation as recorded by the Scribe Esteban Spencer All medical record entries made by the Scribe were at my direction and personally dictated by me. I have reviewed the chart and agree that the record accurately reflects my personal performance of the history, physical exam, medical decision making, and the department course for this patient. I have also personally directed, reviewed, and agree with the discharge instructions and disposition.
[2018-05-12 13:41] VITALS: BP 125/87; PULSE 115; RESP 20; TEMP 98.6
[2018-05-12 13:42] VITALS: O2SAT 99
--- NOTE | 2018-05-12 16:24 | RAD ---
Date of service: 05/12/2018 PROCEDURE: Radiographs of the Sacrum and Coccyx HISTORY: PAIN P FALL COMPARISON: None available. TECHNIQUE: Frontal and lateral views of the sacrum and coccyx FINDINGS: BONES: Sacrum and coccyx unremarkable. No fracture or focal lesion. SACROILIAC JOINTS: Unremarkable. OTHER FINDINGS: None. IMPRESSION: Unremarkable radiographs of the sacrum and coccyx.
--- NOTE | 2018-05-14 12:51 | CARD ---
APPROVED REPORT Date of service: 05/12/2018 EKG Measurement Heart [id number] ID [id number] <Conclusion> Sinus tachycardia Nonspecific T wave abnormality Abnormal ECG
== END 2018-05-12 13:54 | disposition home or self-care (01) ==
LOC: C.ER 12:17
DX: M54.5 Low back pain (principal); R00.0 Tachycardia, unspecified

== ENCOUNTER 2018-07-22 11:13 | Emergency (ER) | payer OTHER ==
[2018-07-22 11:13] VITALS: BMI 24.3
[2018-07-22 11:28] VITALS: RESP 18
[2018-07-22] MEDS ORDERED: Sodium Chloride 0.9% 1,000 ML IV ONE (12:11)
[2018-07-22 12:59] LABS: HCG,QUALITATIVE URINE NEGATIVE (NEGATIVE)
[2018-07-22 13:03] LABS: SQUAMOUS EPITHIAL 9 /hpf (0-5); URINE BILIRUBIN 2+ (NEGATIVE); URINE BLOOD NEGATIVE (NEGATIVE); URINE CLARITY Clear (Clear); URINE COLOR Amber (YELLOW); URINE GLUCOSE (UA) NORMAL (Normal); URINE LEUKOCYTE ESTERASE NEG Leu/uL (Negative); URINE PROTEIN 1+ mg/dL (NEGATIVE)
[2018-07-22 13:07] LABS: BASO % 0.5 % (0.0-2.0); EOS # 0.1 K/uL (0.0-0.7); HEMOGLOBIN 12.2 g/dL (11.0-16.0); LYMPH # 0.9 K/uL (1.0-4.3); LYMPH % 26.3 % (20.0-40.0); MEAN CELL VOLUME 90.7 fL (81.0-99.0); MEAN CORPUSCULAR HEMOGLOBIN 29.1 pg (27.0-31.0); MEAN CORPUSCULAR HGB CONC 32.1 g/dL (33.0-37.0); MEAN PLATELET VOLUME 8.1 fL (7.2-11.7); MONO # 0.3 K/uL (0.0-0.8); MONO % 7.6 % (0.0-10.0); NEUT # 2.2 K/uL (1.8-7.0); NEUT % 62.6 % (50.0-75.0); NRBC % 0.1 % (0.0-2.0); RBC 4.18 Mil/uL (3.80-5.20); RED CELL DISTRIBUTION WIDTH 15.4 % (11.5-14.5); WHITE BLOOD COUNT 3.5 K/uL (4.8-10.8)
[2018-07-22 13:18] LABS: ALB/GLOB RATIO 1.5 (1.0-2.1); ALBUMIN 4.6 g/dL (3.5-5.0); ALT/SGPT 20 U/L (9-52); AST/SGOT 27 U/L (14-36); BLOOD UREA NITROGEN 15 mg/dL (7-17); CALCIUM 8.9 mg/dl (8.6-10.4); GFR NON-AFRICAN AMERICAN > 60
[2018-07-22 13:24] LABS: PROTHROMBIN TIME 11.3 SECONDS (9.7-12.2)
--- NOTE | 2018-07-22 13:35 | C.PDOC ---
History Of Present Illness 43 year old female with PMH of fibroids presents to ED for complaints of cramping pelvic pain associated with bleeding that began 2 days ago. Patient reports taking Tramadol with little relief. She also states that he was told in the past that he should get surgery but she currently states she is "working on it with her insurance." Denies any other complaints. Time Seen by Provider: 07/22/18 11:59 Chief Complaint (Nursing): Female Genitourinary History Per: Patient History/Exam Limitations: no limitations Onset/Duration Of Symptoms: Days (2) Current Symptoms Are (Timing): Still Present Quality Of Discomfort: "Pain" Associated Symptoms: denies: Fever, Chills, Nausea, Vomiting Alleviating Factors: None Recent travel outside of the [place]: No Abnormal Vaginal Bleeding: Yes Past Medical History Reviewed: Historical Data, Nursing Documentation, Vital Signs Vital Signs: Last Vital Signs Temp 97.4 F L 07/22/18 11:23 Pulse 97 H 07/22/18 11:23 Resp 18 07/22/18 11:23 BP 127/85 07/22/18 11:23 Pulse Ox 100 07/22/18 11:23 - Medical History PMH: Anemia, Back Problems, Cardia Arrhythmia (palpitations), HTN, Hypothyroidism Denies: Chronic Kidney Disease Comment Only: Seizures (denies 03/06/18) Family History: States: Unknown Family Hx - Social History Hx Tobacco Use: No Hx Alcohol Use: No Hx Substance Use: No - Immunization History Hx Tetanus Toxoid Vaccination: Yes Hx Influenza Vaccination: Yes Hx Pneumococcal Vaccination: Yes Review Of Systems Constitutional: Negative for: Fever, Chills Gastrointestinal: Negative for: Nausea, Vomiting, Diarrhea Genitourinary: Positive for: Vaginal Bleeding, Pelvic Pain. Negative for: Dysuria Skin: Negative for: Rash Neurological: Negative for: Weakness, Numbness Physical Exam - Physical Exam Appears: Non-toxic, No Acute Distress, Other (Uncomfortable ) Skin: Normal Color, Warm, Dry, No Rash Head: Atraumatic, Normacephalic Eye(s): bilateral: Normal Inspection, PERRL, EOMI Oral Mucosa: Moist Neck: Normal ROM, Supple Chest: Symmetrical, No Tenderness Cardiovascular: Rhythm Regular, No Murmur Respiratory: Normal Breath Sounds, No Rales, No Rhonchi, No Wheezing Gastrointestinal/Abdominal: Bowel Sounds (Active ), Soft, Tenderness Extremity: Normal ROM Extremity: Bilateral: Atraumatic, Normal Color And Temperature, Normal ROM Pulses: Left Radial: Normal, Right Radial: Normal Neurological/Psych: Oriented x3, Normal Speech Gait: Steady ED Course And Treatment - Laboratory Results Result Diagrams: 07/22/18 13:03 07/22/18 13:03 Lab Interpretation: No Acute Changes O2 Sat by Pulse Oximetry: 100 (RA) Pulse Ox Interpretation: Normal Medical Decision Making Medical Decision Making: Impression: pelvic pain Plan: * Toradol * IV Fluids * Blood work * Urinalysis Progress: Patient treated with Toradol. Labs reviewed, normal H/H. UA negative. Patient reported improvement of pain. She has normal vital signs and stable for discharge. Disposition Counseled Patient/Family Regarding: Diagnosis, Need For Followup, Rx Given - Disposition Referrals: Stephanie York MD [Medical Doctor] - Disposition: HOME/ ROUTINE Disposition Time: 14:00 Condition: GOOD Additional Instructions: Vaya a aguirre mdico en 2-5 hamitlon sin falta, para mas evaluacin. [place] los medicamentos garry indicado. Volver a la klaudia de emergencia en cualquier momento si los sntomas persisten o empeoran. 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 - Scribe Statement The provider has reviewed the documentation as recorded by the Scribe Castro Beverly All medical record entries made by the Scribe were at my direction and per sonally dictated by me. I have reviewed the chart and agree that the record accurately reflects my personal performance of the history, physical exam, medical decision making, and the department course for this patient. I have also personally directed, reviewed, and agree with the discharge instructions and disposition.
[2018-07-22 14:02] VITALS: BP 118/74; PULSE 77; TEMP 98
[2018-07-22 14:04] VITALS: O2SAT 100
== END 2018-07-22 14:01 | disposition home or self-care (01) ==
LOC: C.ER 11:13
DX: D25.9 Leiomyoma of uterus, unspecified (principal); R10.2 Pelvic and perineal pain; I10 Essential (primary) hypertension; E03.9 Hypothyroidism, unspecified
CPT/HCPCS: 80053; 81001; 84703; 85025; 85610; 85730; 96372; 99284; J1885

== ENCOUNTER 2018-09-26 16:15 | Emergency (ER) | payer OTHER ==
[2018-09-26 16:16] VITALS: BMI 24.3
[2018-09-26] MEDS ORDERED: Sodium Chloride 0.9% 1,000 ML IV ONE (16:43)
[2018-09-26] MEDS ORDERED: Sodium Chloride 0.9% 1,000 ML ONE (16:57)
--- NOTE | 2018-09-26 17:11 | C.PDOC ---
History Of Present Illness 43 year old female presents to ED with complaint of crampy lower abdominal pain. Patient also complains of occasional vaginal bleeding. Patient has a PMHx of fibroid and endometriosis. She also has a surgical history of gastric bypass with multiple perforations. She states she wanted to make an appointment with her home health manager, but they no longer accept her insurance. She has been seen in [facility] ER in the past for similar complaints. Patient denies vaginal discharge, hematuria, dysuria, nausea, and vomiting. <Lizzy Bell - Last Filed: 09/26/18 18:54> History Per: Patient History/Exam Limitations: no limitations Onset/Duration Of Symptoms: Unknown Current Symptoms Are (Timing): Still Present Location Of Pain/Discomfort: Suprapubic, Other (lower abdomen) Radiation Of Pain To:: None Quality Of Discomfort: Cramping Associated Symptoms: denies: Fever, Chills, Nausea, Vomiting, Urinary Symptoms, Other (vaginal discharge) Exacerbating Factors: None Alleviating Factors: None Abnormal Vaginal Bleeding: Yes <Lizzy Bell - Last Filed: 09/26/18 18:54> <Gabbi Ferrer - Last Filed: 09/26/18 20:10> Time Seen by Provider: 09/26/18 16:24 Chief Complaint (Nursing): Female Genitourinary Past Medical History Reviewed: Historical Data, Nursing Documentation, Vital Signs Vital Signs: Last Vital Signs Temp 98.1 F 09/26/18 16:24 Pulse Resp 18 09/26/18 16:24 BP 143/84 09/26/18 16:24 Pulse Ox - Medical History PMH: Anemia, Back Problems, Cardia Arrhythmia (palpitations), HTN, Hypothyroidi sm Comment Only: Seizures (denies 03/06/18) Other PMH: Endometriosis, Fibroid Other Surgeries: Gastric bypass with multiple perforations Family History: States: Unknown Family Hx - Social History Hx Tobacco Use: No Hx Alcohol Use: No Hx Substance Use: No - Immunization History Hx Tetanus Toxoid Vaccination: Yes Hx Influenza Vaccination: Yes Hx Pneumococcal Vaccination: Yes <Lizzy Bell - Last Filed: 09/26/18 18:54> Vital Signs: Last Vital Signs Temp 98.1 F 09/26/18 16:24 Pulse Resp 18 09/26/18 16:24 BP 143/84 09/26/18 16:24 Pulse Ox 98 09/26/18 18:56 <Gabbi Ferrer - Last Filed: 09/26/18 20:10> Review Of Systems Constitutional: Negative for: Fever, Chills, Weakness Gastrointestinal: Positive for: Abdominal Pain (lower abdomen). Negative for: Nausea, Vomiting Genitourinary: Positive for: Vaginal Bleeding. Negative for: Dysuria, Hematuria, Vaginal Discharge Neurological: Negative for: Weakness, Numbness, Dizziness <Lizzy Bell - Last Filed: 09/26/18 18:54> Physical Exam - Physical Exam Appears: Non-toxic Skin: Normal Color, Warm, Dry Head: Atraumatic, Normacephalic Neck: Normal ROM, Supple Chest: Symmetrical, No Deformity Cardiovascular: Rhythm Regular, No Murmur Respiratory: Normal Breath Sounds Gastrointestinal/Abdominal: Tenderness (lower abdomen), Other (abdomen multiple incision sites from past gastric bypass) Extremity: Capillary Refill (<2 seconds) Extremity: Bilateral: Atraumatic, Normal Color And Temperature, Normal ROM Neurological/Psych: Oriented x3, Normal Speech, Normal Cognition Gait: Steady <Lizzy Bell - Last Filed: 09/26/18 18:54> ED Course And Treatment - Laboratory Results Result Diagrams: 09/26/18 17:51 09/26/18 17:51 Lab Interpretation: Normal Urine POC: Negative O2 Sat by Pulse Oximetry: 98 Pulse Ox Interpretation: Normal Progress Note: Treated with IVF NSS and toradol IV Reassessment Condition: Improved <Lizzy Bell - Last Filed: 09/26/18 18:54> - Laboratory Results Result Diagrams: 09/26/18 17:51 09/26/18 17:51 Lab Results: Total Bilirubin 0.5 mg/dL (0.2-1.3) 09/26/18 17:51 AST 26 U/L (14-36) 09/26/18 17:51 ALT 15 U/L (9-52) 09/26/18 17:51 Alkaline Phosphatase 77 U/L (38-126) 09/26/18 17:51 Total Protein 8.0 g/dL (6.3-8.3) 09/26/18 17:51 Albumin 4.7 g/dL (3.5-5.0) 09/26/18 17:51 Globulin 3.2 gm/dL (2.2-3.9) 09/26/18 17:51 Albumin/Globulin Ratio 1.5 (1.0-2.1) 09/26/18 17:51 Urine Color Straw (YELLOW) 09/26/18 17:51 Urine Clarity Clear (Clear) 09/26/18 17:51 Urine pH 7.0 (5.0-8.0) 09/26/18 17:51 Ur Specific [place] 1.012 (1.003-1.030) 09/26/18 17:51 Urine Protein Negative mg/dL (NEGATIVE) 09/26/18 17:51 Urine Glucose (UA) Normal mg/dL (Normal) 09/26/18 17:51 Urine Ketones Negative mg/dL (NEGATIVE) 09/26/18 17:51 Urine Blood Negative (NEGATIVE) 09/26/18 17:51 Urine Nitrate Negative (NEGATIVE) 09/26/18 17:51 Urine Bilirubin Negative (NEGATIVE) 09/26/18 17:51 Urine Urobilinogen Normal mg/dL (0.2-1.0) 09/26/18 17:51 Ur Leukocyte Esterase Neg Jean [place]/uL (Negative) 09/26/18 17:51 Urine WBC (Auto) 1 /hpf (0-5) 09/26/18 17:51 Urine RBC (Auto) 1 /hpf (0-3) 09/26/18 17:51 Ur Squamous Epith Cells 2 /hpf (0-5) 09/26/18 17:51 Urine Bacteria Rare (<OCC) 09/26/18 17:51 Urine HCG, Qual Negative (NEGATIVE) 09/26/18 17:51 Urine HCG, Qual Negative (NEGATIVE) 09/26/18 17:51 - CT Scan/US Transvaginal US Other Rad Studies (CT/US): Read By Radiologist, Radiology Report Reviewed CT/US Interpretation: History. Vaginal bleeding. Comparison. None available. Technique. TA/TV. Findings. Uterus. Measures 10.4 x 5.7 x 6.2 cm. Normal in size and appearance. Mid fundal posterior fibroid measures 3 x 2.5 x 3.7 cm. Endometrium. Measures 16 mm in diameter. Right ovary. Measures 3.7 x 3.2 x 3.3 cm. No solid mass. Normal flow. Cyst measures 1.8 x 1.5 x 1.9 cm. Left ovary. Measures 3.1 x 1.8 x 2.6 cm. No solid mass. Normal flow. Free fluid. No significant free fluid noted. Other Findings. None. Impression. 1. Uteri ne fibroid. 2. Right ovarian cyst. CT abd/pel Other Rad Studies (CT/US): Read By Radiologist, Radiology Report Reviewed CT/US Interpretation: EXAM: CT Abdomen and Pelvis without IV contrast. CLINICAL HISTORY: Pelvic pain hx of fibroids. TECHNIQUE: Axial computed tomography images of the abdomen and pelvis without intravenous contrast. 0.00 mGy-cm. CONTRAST: Without. COMPARISON: None provided. FINDINGS: LUNG BASES: The lung bases appear clear. No pleural effusions are seen. Small hiatal hernia present. Bilateral breast implants are noted. LIVER: Unremarkable. GALLBLADDER AND BILE DUCTS: The gallbladder appears within normal limits. No radioopaque gallstones are seen. No biliary ductal dilatation is evident. PANCREAS: Unremarkable. SPLEEN: Unremarkable. ADRENAL GLANDS: Unremarkable. KIDNEYS, URETERS, AND BLADDER: There is mild dilatation of the right renal collecting system. There is no hydronephrosis or hydroureter. No urinary calculi are seen. STOMACH AND BOWEL: Unremarkable appearance of the stomach and bowel. No evidence of bowel obstruction. No evidence suggesting enteritis or colitis. Postsurgical changes seen about the stomach. APPENDIX: No evidence of acute appendicitis on CT examination. PERITONEUM: No free fluid. No free air. LYMPH NODES: No lymphadenopathy is evident. REPRODUCTIVE: Moderately enlarged fibroid uterus suspected. VASCULATURE: No evidence of abdominal aortic aneurysm. BONES: No aggressive appearing osseous lesion. No acute osseous pathology evident. IMPRESSION: Small hiatal hernia. Postsurgical changes about the stomach. Bilateral breast implants. Mild dilatation right renal collecting system. Moderately enlarged fibroid uterus. Correlation with ultrasound of the pelvis recommended. Reevaluation Time: 20:08 Reassessment Condition: Improved (but patient again asking for pain medication. States that she has had similar pain due to fibroids and endometriosis in the past. Patient walking back and forth to the bathroom in no distress. Given Tylenol.) <Gabbi Ferrer - Last Filed: 09/26/18 20:10> Medical Decision Making Medical Decision Making: Impression: 43 year old female with complaint of lower abdominal pain Plan: Abdomen/Pelvis CT Transvaginal US Labs ordered with UA and U-preg IV fluids Toradol IVP <Lizzy Bell - Last Filed: 09/26/18 18:54> Disposition Counseled Patient/Family Regarding: Studies Performed, Diagnosis, Need For F ollowup - Disposition Disposition Time: 19:00 - POA Present On Arrival: None <Lizzy Bell - Last Filed: 09/26/18 18:54> - Disposition Disposition Time: 20:09 <Gabbi Ferrer - Last Filed: 09/26/18 20:10> - Disposition Referrals: at 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 (Rehana Hosuton) - Scribe Statement The provider has reviewed the documentation as recorded by the Scribe (Rehana Houston) All medical record entries made by the Scribe were at my direction and pers onally dictated by me. I have reviewed the chart and agree that the record accurately reflects my personal performance of the history, physical exam, medical decision making, and the department course for this patient. I have also personally directed, reviewed, and agree with the discharge instructions and disposition. <Lizzy Bell - Last Filed: 09/26/18 18:54> Physician Patient Turnover Patient Signed Over To: Gabbi Ferrer Handoff Comments: CT abd/pelvis, US <Lizzy Bell - Last Filed: 09/26/18 18:54> Addendum Addendum: 09/26/18 19:40 CT A/P reviewed: Name: KAMRON WOOTEN Exam Date: Sep 26, 2018 6:50:44 PM EDT Modality Type: CT\SR Description: CT - ABDOMEN AND PELVIS Gender: F Laterality: Not applicable : 73 Referring Physician: Lizzy Bell (MOLD CLAMPER) EXAM: CT Abdomen and Pelvis without IV contrast CLINICAL HISTORY: Pelvic pain hx of fibroids TECHNIQUE: Axial computed tomography images of the abdomen and pelvis without intravenous contrast. 0.00 mGy-cm CONTRAST: Without COMPARISON: None provided. FINDINGS: LUNG BASES: The lung bases appear clear. No pleural effusions are seen. Small hiatal hernia present. Bilateral breast implants are noted. LIVER: Unremarkable. GALLBLADDER AND BILE DUCTS: The gallbladder appears within normal limits. No radioopaque gallstones are seen. No biliary ductal dilatation is evident. PANCREAS: Unremarkable. SPLEEN: Unremarkable. ADRENAL GLANDS: Unremarkable. KIDNEYS, URETERS, AND BLADDER: There is mild dilatation of the right renal collecting system. There is no hydronephrosis or hydroureter. No urinary calculi are seen. STOMACH AND BOWEL: Unremarkable appearance of the stomach and bowel. No evidence of bowel obstruction. No evidence suggesting enteritis or colitis. Postsurgical changes seen about the stomach. APPENDIX: No evidence of acute appendicitis on CT examination. PERITONEUM: No free fluid. No free air. LYMPH NODES: No lymphadenopathy is evident. REPRODUCTIVE: Moderately enlarged fibroid uterus suspected. VASCULATURE: No evidence of abdominal aortic aneurysm. BONES: No aggressive appearing osseous lesion. No acute osseous pathology evident. IMPRESSION: Small hiatal hernia. Postsurgical changes about the stomach. Bilateral breast implants. Mild dilatation right renal collecting system. Moderately enlarged fibroid uterus. Correlation with ultrasound of the pelvis recommended. Electronically signed on Sep 26, 2018 7:37:51 PM EDT by: Kristofer Camarillo M.D., Certified by [facility], Diagnostic Radiology <Gabbi Ferrer - Last Filed: 09/26/18 20:10>
[2018-09-26 18:09] LABS: HCG,QUALITATIVE URINE NEGATIVE (NEGATIVE)
[2018-09-26 18:10] LABS: SQUAMOUS EPITHIAL 2 /hpf (0-5); URINE BACTERIA RARE (<OCC); URINE BILIRUBIN NEGATIVE (NEGATIVE); URINE BLOOD NEGATIVE (NEGATIVE); URINE CLARITY Clear (Clear); URINE COLOR Straw (YELLOW); URINE GLUCOSE (UA) NORMAL (Normal); URINE LEUKOCYTE ESTERASE NEG Leu/uL (Negative); URINE PROTEIN NEGATIVE (NEGATIVE); URINE UROBILINOGEN NORMAL mg/dL (0.2-1.0)
[2018-09-26 18:11] LABS: BASO % 0.4 % (0.0-2.0); EOS % 0.8 % (0.0-4.0); HEMOGLOBIN 11.5 g/dL (11.0-16.0); LYMPH # 0.7 K/uL (1.0-4.3); LYMPH % 18.5 % (20.0-40.0); MEAN CELL VOLUME 86.3 fL (81.0-99.0); MEAN CORPUSCULAR HEMOGLOBIN 26.3 pg (27.0-31.0); MEAN CORPUSCULAR HGB CONC 30.4 g/dL (33.0-37.0); MEAN PLATELET VOLUME 8.4 fL (7.2-11.7); MONO # 0.3 K/uL (0.0-0.8); MONO % 6.3 % (0.0-10.0); NRBC % 0.1 % (0.0-2.0); RBC 4.38 Mil/uL (3.80-5.20); RED CELL DISTRIBUTION WIDTH 16.4 % (11.5-14.5)
[2018-09-26 18:19] LABS: ALB/GLOB RATIO 1.5 (1.0-2.1); ALBUMIN 4.7 g/dL (3.5-5.0); ALT/SGPT 15 U/L (9-52); AST/SGOT 26 U/L (14-36); BLOOD UREA NITROGEN 13 mg/dL (7-17); CALCIUM 9.2 mg/dl (8.6-10.4); GFR NON-AFRICAN AMERICAN > 60
[2018-09-26 18:54] VITALS: O2SAT 98
[2018-09-26 19:53] VITALS: BP 136/90; PULSE 89; RESP 16; TEMP 98.5
--- NOTE | 2018-09-27 11:10 | CT ---
Date of service: 09/26/2018 PROCEDURE: CT Abdomen and Pelvis without intravenous contrast HISTORY: Pain COMPARISON: None. TECHNIQUE: Technique. Contrast dose: Radiation dose: Total exam DLP = 332.24 mGy-cm. This CT exam was performed using one or more of the following dose reduction techniques: Automated exposure control, adjustment of the mA and/or kV according to patient size, and/or use of iterative reconstruction technique. FINDINGS: LOWER THORAX: Unremarkable. LIVER: Unremarkable. No gross lesion or ductal dilatation. GALLBLADDER AND BILE DUCTS: Unremarkable. PANCREAS: Unremarkable. No gross lesion or ductal dilatation. SPLEEN: Unremarkable. ADRENALS: Unremarkable. No mass. KIDNEYS AND URETERS: Unremarkable. No hydronephrosis. No solid mass. VASCULATURE: Unremarkable. No aortic aneurysm. No aortic atherosclerotic calcification or mural plaque present. BOWEL: Unremarkable. No obstruction. No gross mural thickening. APPENDIX: Unremarkable. Normal appendix. PERITONEUM: Unremarkable. No free fluid. No free air. LYMPH NODES: Unremarkable. No enlarged lymph nodes. BLADDER: Unremarkable. REPRODUCTIVE: Unremarkable. BONES: No acute fracture. OTHER FINDINGS: Post gastric sleeve surgery. IMPRESSION: Unremarkable non contrast enhanced CT of the abdomen and pelvis.
--- NOTE | 2018-09-27 12:15 | US ---
Date of service: 09/26/2018 HISTORY: vaginal bleeding COMPARISON: Pelvic ultrasound performed 03/29/18 TECHNIQUE: Real-time transabdominal pelvic ultrasound was performed. In addition a transvaginal pelvic ultrasound was necessary to better depict pelvic anatomy. FINDINGS: UTERUS: Measures 10.4 x 5.7 x 6.2 cm. Anteverted. 3.0 x 2.5 x 3.7 cm probable uterine fibroid, posterior mid/fundal. ENDOMETRIUM: Measures 1.6 cm in diameter. CERVIX: No cervical abnormality identified. RIGHT OVARY: Measures 3.7 x 3.2 x 3.3 cm. Blood flow is demonstrated. 1.8 x 1.5 x 1.9 cm dominant follicle. LEFT OVARY: Measures 3.1 x 1.8 x 2.6 cm. Blood flow is demonstrated. FREE FLUID: No significant free fluid noted. OTHER FINDINGS: None. IMPRESSION: Uterine fibroid. Preliminary impression was provided by [employer].
== END 2018-09-26 20:15 | disposition home or self-care (01) ==
LOC: C.ER 16:15
DX: R10.2 Pelvic and perineal pain (principal); G89.29 Other chronic pain; I10 Essential (primary) hypertension; Z98.84 Bariatric surgery status
CPT/HCPCS: 74176; 76830; 76856; 80053; 81001; 84703; 85025; 96361; 96374; 99284; J1885; J7030

== ENCOUNTER 2018-09-27 09:06 | Emergency (ER) | payer OTHER ==
[2018-09-27 09:08] VITALS: BMI 21.9
[2018-09-27 09:14] VITALS: BP 132/85; RESP 18; TEMP 98.4
[2018-09-27 09:22] VITALS: PULSE 98; O2SAT 100
--- NOTE | 2018-09-27 09:53 | C.PDOC ---
History Of Present Illness 43 year old female, who is otherwise well, presents to the ED for evaluation of back pain which began this morning. Patient states she is moving into a new apartment and was moving boxes yesterday when she strained her back. Patient was seen in the ED yesterday for a different complaint and was discharged, but did not complain of back pain at the time. She states her pain is mostly right-sided and radiates down her buttock and legs. She took Naproxen and Gabapentin around ten minutes prior to my evaluation, and reports minimal relief. Patient denies fever, chills, headache, neck pain, nausea, vomiting, abdominal pain (for which she was evaluated yesterday), trauma/falls. Time Seen by Provider: 09/27/18 09:15 Chief Complaint (Nursing): Back Pain History Per: Patient History/Exam Limitations: no limitations Onset/Duration Of Symptoms: Hrs Current Symptoms Are (Timing): Still Present Quality Of Discomfort: "Pain" Previous Symptoms: Back Pain Past Medical History Reviewed: Historical Data, Nursing Documentation, Vital Signs Vital Signs: Last Vital Signs Temp 98.4 F 09/27/18 09:08 Pulse 98 H 09/27/18 09:21 Resp 18 09/27/18 09:21 BP 132/85 09/27/18 09:08 Pulse Ox 100 09/27/18 09:21 - Medical History PMH: Anemia, Back Problems, Cardia Arrhythmia (palpitations), HTN, Hypothyroidism Denies: Chronic Kidney Disease Comment Only: Seizures (denies 03/06/18) Surgical History: No Surg Hx Family History: States: Unknown Family Hx - Social History Hx Tobacco Use: No Hx Alcohol Use: No Hx Substance Use: No - Immunization History Hx Tetanus Toxoid Vaccination: Yes Hx Influenza Vaccination: Yes Hx Pneumococcal Vaccination: Yes Review Of Systems Constitutional: Negative for: Fever, Chills Gastrointestinal: Negative for: Nausea, Vomiting, Abdominal Pain Musculoskeletal: Positive for: Back Pain. Negative for: Neck Pain Neurological: Negative for: Headache Physical Exam - Physical Exam Appears: Non-toxic, No Acute Distress Skin: Normal Color, Warm, Dry Head: Atraumatic, Normacephalic, Tenderness Eye(s): bilateral: Normal Inspection Neck: Supple Chest: Symmetrical, No Deformity, No Tenderness Cardiovascular: Rhythm Regular, No Murmur Respiratory: Normal Breath Sounds, No Rales, No Rhonchi, No Wheezing Back: No Vertebral Tenderness, No Paraspinal Tenderness Extremity: Normal ROM, Capillary Refill (less than 2 seconds ) Neurological/Psych: Normal Speech, Normal Cognition, Normal Sensation Gait: Steady ED Course And Treatment O2 Sat by Pulse Oximetry: 100 (on RA) Pulse Ox Interpretation: Normal Medical Decision Making Medical Decision Making: Progress: Tylenol PO, Flexeril PO and Prednisone PO given. Disposition Counseled Patient/Family Regarding: Diagnosis, Need For Followup, Rx Given - Disposition Disposition: HOME/ ROUTINE Disposition Time: 09:51 Condition: STABLE Additional Instructions: Siga con aguirre doctor primario. Prescriptions: Cyclobenzaprine [Cyclobenzaprine HCl] 10 mg PO TID #15 tab Ibuprofen [Motrin] 600 mg PO TID #15 tab Instructions: Low Back Pain (DC), Sciatica (DC) Forms: Gen Discharge Inst French, [facility] (French), Work Excuse - POA Present On Arrival: None - Clinical Impression Clinical Impression: Sciatica, Low back strain - Scribe Statement The provider has reviewed the documentation as recorded by the Scribe (June Andrews) Provider Attestation: All medical record entries made by the Scribe were at my direction and personally dictated by me. I have reviewed the chart and agree that the record accurately reflects my personal performance of the history, physical exam, medical decision making, and the department course for this patient. I have also personally directed, reviewed, and agree with the discharge instructions and disposition.
== END 2018-09-27 10:04 | disposition home or self-care (01) ==
LOC: C.ER 09:06
DX: S39.012A Strain of muscle, fascia and tendon of lower back, initial encounter (principal); M54.30 Sciatica, unspecified side; X50.9XXA Other and unspecified overexertion or strenuous movements or postures, initial encounter; Y92.039 Unspecified place in apartment as the place of occurrence of the external cause

== ENCOUNTER 2018-10-02 15:14 | Emergency (ER) | payer MEDICAID, MEDICARE, OTHER ==
[2018-10-02 15:14] VITALS: BMI 22.8
--- NOTE | 2018-10-02 15:52 | C.PDOC ---
History Of Present Illness Patient is a 43 y/o female with a PMHx of htn/hypothyroidism/PID with gonorrhea/CVA/fibroid/endometriosis/cervical cancer? gastric sleeve surgery, and chronic pain. She presents today to the ED complaining of exacerbation of chronic low back pain since yesterday. Patient was given Motrin and Flexeril on 09/27 but completed the prescription. States she has followed up with her PMD and is pending ortho referral and eval on 10/12. She reports no new symptoms since prior ED eval. Time Seen by Provider: 10/02/18 15:50 Chief Complaint (Nursing): Back Pain History Per: Patient History/Exam Limitations: no limitations Onset/Duration Of Symptoms: Days Current Symptoms Are (Timing): Still Present Past Medical History Reviewed: Historical Data, Nursing Documentation, Vital Signs - Medical History PMH: Anemia, Back Problems, Cardia Arrhythmia (palpitations), CVA, HTN, Hypothyroidism, Sexually Transmitted Disease (Gonorrhea), Chronic Pain Denies: Chronic Kidney Disease Comment Only: Seizures (denies 03/06/18) Other PMH: fibroid/endometriosis/cervical cancer? Other Surgeries: Gastric sleeve surgery Family History: States: Unknown Family Hx - Social History Hx Tobacco Use: No Hx Alcohol Use: No Hx Substance Use: No - Immunization History Hx Tetanus Toxoid Vaccination: Yes Hx Influenza Vaccination: Yes Hx Pneumococcal Vaccination: Yes Review Of Systems Except As Marked, All Systems Reviewed And Found Negative. Constitutional: Negative for: Fever, Chills Cardiovascular: Negative for: Chest Pain Respiratory: Negative for: Cough, Shortness of Breath Gastrointestinal: Negative for: Nausea, Vomiting, Abdominal Pain, Diarrhea Genitourinary: Negative for: Dysuria, Frequency, Hematuria Musculoskeletal: Positive for: Back Pain Neurological: Negative for: Weakness, Numbness, Incoordination Physical Exam - Physical Exam Appears: Non-toxic, No Acute Distress Skin: Warm, Dry Head: Atraumatic, Normacephalic Eye(s): bilateral: Normal Inspection, PERRL, EOMI Neck: Normal ROM Chest: Symmetrical Respiratory: No Accessory Muscle Use, Other (NARD) Back: Normal Inspection (AROM without difficulty, atraumatic), No CVA Tenderness, No Vertebral Tenderness Extremity: Bilateral: Atraumatic, Normal Color And Temperature, Normal ROM Pulses: Left Dorsalis Pedis: Normal, Right Dorsalis Pedis: Normal Neurological/Psych: Oriented x3, Normal Motor, Normal Sensation, Other (Neurologically intact) Gait: Steady ED Course And Treatment O2 Sat by Pulse Oximetry: 100 (on RA) Pulse Ox Interpretation: Normal Medical Decision Making Medical Decision Making: SEEN 09/26, AND FOR BACK PAIN, PELVIC PAIN. S/P MULTIPLE US AND CT SINCE 09/26 Plan: - 600 mg PO Motrin - 10 mg PO Flexeril Disposition Counseled Patient/Family Regarding: Diagnosis, Need For Followup, Rx Given - Disposition Referrals: YOUR,ORTHOPEDIST [Other] Disposition: HOME/ ROUTINE Disposition Time: 15:57 Condition: IMPROVED Prescriptions: Cyclobenzaprine [Flexeril] 10 mg PO TID #30 tab Ibuprofen [Motrin] 600 mg PO Q6 #30 tab Instructions: Low Back Pain (DC) Forms: [email or web address] (Korean) - Clinical Impression Clinical Impression: Chronic back pain - Scribe Statement The provider has reviewed the documentation as recorded by the Alannah Gonzalez Provider Attestation: All medical record entries made by the Alannah were at my direction and personally dictated by me. I have reviewed the chart and agree that the record accurately reflects my personal performance of the history, physical exam, medical decision making, and the department course for this patient. I have also personally directed, reviewed, and agree with the discharge instructions and disposition.
[2018-10-02 15:54] VITALS: BP 135/89; PULSE 112; RESP 20; TEMP 98.6; O2SAT 100
== END 2018-10-02 16:04 | disposition home or self-care (01) ==
LOC: C.ER 15:14
DX: G89.29 Other chronic pain (principal); M54.5 Low back pain

== ENCOUNTER 2018-10-12 11:12 | Emergency (ER) | payer MEDICAID, MEDICARE, OTHER ==
[2018-10-12 11:16] VITALS: BMI 21.2
[2018-10-12 11:19] VITALS: BP 127/88; PULSE 101; RESP 20; TEMP 98.5; O2SAT 100
--- NOTE | 2018-10-12 11:23 | C.PDOC ---
History Of Present Illness 43 y/o female with history of Fibroids, Endometriosis, and Gastric bypass presents to the ED reporting ongoing pelvic pain. She has had multiple ED visits for the same complaint including most recently on 09/26/18. CT abd/pelvis revealed small hiatal hernia, mild dilatation of right renal collecting system, and moderately enlarged fibroid uterus. Pelvic ultrasound was also performed reveling uterine fibroid and right ovarian cyst. UA was negative. IV fluids and Toradol given. She states that she is currently on Tramadol which she took at 6am and Motrin at 11am but continues to have pelvic pain. 8/10 in severity. Nonradiating and constant. She denies vaginal discharge, vaginal bleeding, urinary symptoms, chest pain, SOB, fever, chills, nausea, and vomiting. To note, Patient has had scripts filled for Percocet, Zolpidem, and Tramadol since her last visit. Time Seen by Provider: 10/12/18 11:22 Chief Complaint (Nursing): Female Genitourinary History Per: Patient History/Exam Limitations: no limitations Onset/Duration Of Symptoms: Persistent Current Symptoms Are (Timing): Still Present Pain Scale Rating Of: 8 Quality Of Discomfort: Aching Associated Symptoms: denies: Fever, Chills, Nausea, Vomiting, Diarrhea, Loss Of Appetite, Back Pain, Chest Pain, Constipation, Urinary Symptoms Exacerbating Factors: Movement, Walking Alleviating Factors: Other (narcotics) Recent travel outside of the [place]: No Past Medical History Reviewed: Historical Data, Nursing Documentation, Vital Signs Vital Signs: Last Vital Signs Temp 98.5 F 10/12/18 11:16 Pulse 101 H 10/12/18 11:16 Resp 20 10/12/18 11:16 BP 127/88 10/12/18 11:16 Pulse Ox 100 10/12/18 11:16 - Medical History PMH: Anemia, Back Problems, Cardia Arrhythmia (palpitations), CVA, HTN, Hypothyroidism, Sexually Transmitted Disease (Gonorrhea), Chronic Pain Denies: Chronic Kidney Disease Comment Only: Seizures (denies 03/06/18) Family History: States: Unknown Family Hx - Social History Hx Tobacco Use: No Hx Alcohol Use: No Hx Substance Use: No - Immunization History Hx Tetanus Toxoid Vaccination: Yes Hx Influenza Vaccination: Yes Hx Pneumococcal Vaccination: Yes Review Of Systems Constitutional: Negative for: Fever, Chills, Sweats Cardiovascular: Negative for: Chest Pain Respiratory: Negative for: Cough, Shortness of Breath Gastrointestinal: Negative for: Nausea, Vomiting, Abdominal Pain Genitourinary: Positive for: Pelvic Pain. Negative for: Dysuria, Frequency, Vaginal Discharge, Vaginal Bleeding, Rash Musculoskeletal: Negative for: Back Pain Neurological: Negative for: Headache Physical Exam - Physical Exam Appears: Non-toxic, No Acute Distress Skin: Normal Color, Warm, Dry, No Diaphoretic, No Rash Head: Atraumatic, Normacephalic Eye(s): bilateral: Normal Inspection Chest: Symmetrical Cardiovascular: Rhythm Regular Respiratory: Normal Breath Sounds, No Wheezing Gastrointestinal/Abdominal: Soft, No Tenderness, No Guarding, No Rebound, Other Back: No CVA Tenderness Pelvic: Other (tenderness to palpation; deferred pelvic exam) Extremity: Normal ROM Neurological/Psych: Oriented x3, Normal Speech, Normal Motor, Normal Sensation ED Course And Treatment O2 Sat by Pulse Oximetry: 100 - CT Scan/US pelvic ultrasound Other Rad Studies (CT/US): Read By Radiologist, Radiology Report Reviewed CT/US Interpretation: Accession No. : [id number]. Patient Name / ID : JE LUNDY / [id number]. Exam Date : 09/26/2018 18:05:42 ( Approved ). Study Comment : Sex / Age : F / 43Y. Creator : Guerda Bello MD. Dictator : Guerda Bello MD. 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 Approver2 : Report Date : 09/27/2018 12:11:28. My Comment : . Date of service: 09/26/2018. HISTORY: vaginal bleeding. COMPARISON: Pelvic ultrasound performed 03/29/18. TECHNIQUE: Real-time transabdominal pelvic ultrasound was performed. In addition a transvaginal pelvic ultrasound was necessary to better depict pelvic anatomy. FINDINGS: UTERUS: Measures 10.4 x 5.7 x 6.2 cm. Anteverted. 3.0 x 2.5 x 3.7 cm probable uterine fibroid, posterior mid/fundal. ENDOMETRIUM: Measures 1.6 cm in diameter. CERVIX: No cervical abnormality identified. RIGHT OVARY: Measures 3.7 x 3.2 x 3.3 cm. Blood flow is demonstrated. 1.8 x 1.5 x 1.9 cm dominant follicle. LEFT OVARY: Measures 3.1 x 1.8 x 2.6 cm. Blood flow is demonstrated. FREE FLUID: No significant free fluid noted. OTHER FINDINGS: None. IMPRESSION: Uterine fibroid. Preliminary impression was provided by [facility]. CT abd/pelvis Other Rad Studies (CT/US): Read By Radiologist, Radiology Report Reviewed CT/US Interpretation: Accession No. : [id number]. Patient Name / ID : JE LUNDY / [id number]. Exam Date : 09/26/2018 18:50:44 ( Approved ). Study Comment : Sex / Age : F / 43Y. Creator : Ralph Francis Dictator : Christiano Mclean MD. 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 Approver2 : Report Date : 09/26/2018 18:59:17. My Comment : . Date of service: 09/26/2018. PROCEDURE: CT Abdomen and Pelvis without intravenous contrast. HISTORY: Pain. COMPARISON: None. TECHNIQUE: Technique. Contrast dose: Radiation dose: Total exam DLP = 332.24 mGy-cm. This CT exam was performed using one or more of the following dose reduction techniques: Automated exposure control, adjustment of the mA and/or kV according to patient size, and/or use of iterative reconstruction technique. FINDINGS: LOWER THORAX: Unremarkable. LIVER: Unremarkable. No gross lesion or ductal dilatation. GALLBLADDER AND BILE DUCTS: Unremarkable. PANCREAS: Unremarkable. No gross lesion or ductal dilatation. SPLEEN: Unremarkable. ADRENALS: Unremarkable. No mass. KIDNEYS AND URETERS: Unremarkable. No hydronephrosis. No solid mass. VASCULATURE: Unremarkable. No aortic aneurysm. No aortic atherosclerotic calcification or mural plaque present. BOWEL: Unremarkable. No obstruction. No gross mural thickening. APPENDIX: Unremarkable. Normal appendix. PERITONEUM: Unremarkable. No free fluid. No free air. LYMPH NODES: Unremarkable. No enlarged lymph nodes. BLADDER: Unremarkable. REPRODUCTIVE: Unremarkable. BONES: No acute fracture. OTHER FINDINGS: Post gastric sleeve surgery. IMPRESSION: Unremarkable non contrast enhanced CT of the abdomen and pelvis. Medical Decision Making Medical Decision Making: D/W patient the need to be followed by pain management for chronic pain Informed her that [place] DIRECTOR TRANSLATION shows that she had a script filled for Tramadol 50mg (100 dispensed) and Zolpidem 10mg (30 dispensed) on 10/03 Percocet (12 dispensed) on 10/02 and 09/28 Advised her that she would only be able to get Motrin or Tylenol today She opted for Tylenol and eloped prior to receiving it Disposition - Disposition Disposition: ELOPEMENT - ER ONLY Disposition Time: 12:31 Condition: UNKNOWN Forms: [employer] (Afghan) - Clinical Impression Clinical Impression: Chronic pelvic pain in female, Fibroids - PA / TOWER HAND / Resident Statement MD/DO has reviewed & agrees with the documentation as recorded. - Scribe Statement The provider has reviewed the documentation as recorded by the Scribe
[2018-10-12 12:04] LABS: HCG,QUALITATIVE URINE NEGATIVE (NEGATIVE)
[2018-10-12 12:11] LABS: SQUAMOUS EPITHIAL 19 /hpf (0-5); URINE BACTERIA OCC (<OCC); URINE BILIRUBIN NEGATIVE (NEGATIVE); URINE BLOOD 1+ (NEGATIVE); URINE CLARITY Hazy (Clear); URINE COLOR Amber (YELLOW); URINE GLUCOSE (UA) NORMAL (Normal); URINE LEUKOCYTE ESTERASE NEG Leu/uL (Negative); URINE PROTEIN NEGATIVE (NEGATIVE)
== END 2018-10-12 12:09 | disposition left against medical advice (07) ==
LOC: C.ER 11:12
DX: D25.9 Leiomyoma of uterus, unspecified (principal); G89.29 Other chronic pain; R10.2 Pelvic and perineal pain